=== PATIENT | male | born 1955 | race Caucasian/White ===

== ENCOUNTER 2021-09-13 15:00 | Inpatient (IN) | payer MEDICARE, OTHER, SELFPAY ==
[2021-09-13] VITALS (9 sets, daily range): BP systolic 91–144; BP diastolic 67–92; PULSE 63–80; RESP 12–18; TEMP 36.2–36.6; O2SAT 98–100
--- NOTE | ~2021-09-13 | XR_ITS ---
EXAMINATION: XR chest 2V DATE: 09/13/2021 15:36 INDICATION: Generalized chest pain TECHNIQUE: AP and lateral views of the chest are obtained. COMPARISON: 09/04/2019 FINDINGS: There are airspace opacities of the mid and lower lung zones. Small pleural effusions are p resent. There is no pneumothorax. The heart size is upper limits of normal for technique. Calcified m ediastinal lymph nodes are consistent with old granulomatous disease. There is a questionable fractur e of the proximal left humerus. IMPRESSION: 1. Airspace opacities of the mid and lower lung zones, consistent with atelectasis versus pneumonia. 2. Possible fracture at the proximal left humerus. Correlate with clinical exam and any outside imagi ng and if unavailable, consider dedicated left shoulder radiographs. Reviewed, dictated and finalized at location B. [facility] IMPRESSION: 1. Airspace opacities of the mid and lower lung zones, consistent with atelecta sis versus pneumonia. 2. Possible fracture at the proximal left humerus. Correlate with clinical exam and any outside imaging and if unavailable, consider dedicated left shoulder r adiographs.
--- NOTE | 2021-09-13 15:20 | ECG_ITS ---
Measurements Intervals [place] Rate: 70 P: NC: 0 QRS: -66 QRSD: 153 T: 69 QT: 426 QTc: 462 Interpretive Statements ATRIAL FIBRILLATION VENTRICULAR PREMATURE COMPLEXES LEFT AXIS DEVIATION LEFT BUNDLE BRANCH BLOCK BASELINE ARTIFACT- I, II, III, AVR, AVL, AVF, V1, V4 ABNORMAL ECG Electronically Signed On 09-13-2021 15:24:11 PEDIATRIC PHYSIATRIST by Rosales Loera D.O.
--- NOTE | 2021-09-13 16:10 | PC.NURSE ---
discharge specialist spoke with [facility] regarding hospice status. discharge specialist informed that sister (jeremías) discharged pt out of facility and d/c hospice care.
[2021-09-13 16:41] LABS: Basophils Absolute Auto 0.1 K/mm3 (0.0-0.1); Basophils Percent Auto 0.7 % (0.2-1.2); Eosinophils Percent Auto 0.2 % (0-4.4); Hematocrit 37.7 % (42.0-52.0); Hemoglobin 11.1 g/dL (14.0-18.0); Immature Granulocyte Absolute 0.91 K/mm3 (0.00-0.031); Immature Granulocyte Percent A 7.3 % (0-0.5); Lymphocytes Absolute Auto 0.72 K/mm3 (0.9-3.2); Lymphocytes Percent Auto 5.7 % (18.3-44.2); Mean Corpuscular HGB Conc 29.4 g/dl (32-36); Mean Corpuscular Hemoglobin 26.6 pg (26-34); Mean Corpuscular Volume 90.4 fl (80-100); Mean Platelet Volume 10.1 fl (7.4-10.4); Monocytes Absolute Auto 0.4 K/mm3 (0.1-0.6); Monocytes Percent Auto 3.3 % (2.6-8.5); Neutrophils Absolute Auto 10.4 K/mm3 (1.3-6.7); Neutrophils Percent Auto 82.8 % (45.5-73.1); Nucleated Red Blood Cells Perc 0.2 % (0.0-0.2); Platelet Count Result 371 k/mm3 (150-375); Red Blood Count 4.17 M/mm3 (4.6-6.20); White Blood Count 12.5 K/mm3 (4.5-10.0)
[2021-09-13 16:50] LABS: Anion Gap 8 mmol/L (8-16); Blood Urea Nitrogen 45 mg/dL (9-20); Calcium 8.1 mg/dL (8.4-10.2); Carbon Dioxide 33 mmol/L (22-30); Chloride 99 mmol/L (98-107); Estimated CRCL calculation 103 ml/min; Estimated Glomerular Filt Rate > 60; Glucose 183 mg/dL (65-110); Potassium 3.6 mmol/L (3.4-5.0); Sodium 140 mmol/L (137-145)
[2021-09-13 16:55] LABS: NT Pro B Type Natriuretic Pept 1370 pg/mL (5-100)
[2021-09-13 17:02] LABS: Troponin I 0.035 ng/mL (0.000-0.034)
[2021-09-13 17:22] LABS: Platelet Estimate Adequate (Adequate)
[2021-09-13 17:23] LABS: Hypochromasia 1+ (NORMAL); Ovalocytes 2+ (NORMAL)
[2021-09-13 17:29] LABS: Add Urine Microscopic? NO; Appearance Urine Clear (Clear); Bilirubin Urine Negative (Negative); Blood Urine Negative (Negative); Color Urine Yellow (Yellow); Glucose Urine UA Negative (Negative); Ketones Urine Negative (Negative); Leukocyte Esterase Ur Negative LEU/UL (Negative); Nitrate Urine Negative (Negative); Protein Urine Negative (Negative); Specific Grav Ur 1.017 (1.001-1.035); Urobilinogen Urine Negative mg/dL (<2.0)
--- NOTE | 2021-09-13 18:41 | ED.GENADULT ---
HPI - General Adult General Chief complaint: Shortness of Breath/Dyspnea Stated complaint: Hospice - chest pain Time Seen by Provider: 09/13/21 15:50 Source: patient and EMS Mode of arrival: EMS History of Present Illness HPI narrative: 66-year-old with a history of diabetes, COPD, CAD, paroxysmal atrial fibrillation, was sent from a [facility] for chest pain. However patient denies having any chest pain he states that he has occasional cough. As per his sister who called us few minutes ago states that he wants her out of the fpc and withdraw from a hospice care. Patient states that he was in a concentration time and he feels terrible. He denies any shortness of breath, nausea or vomiting or abdominal pain. Onset (ago): day(s) (1) Associated symptoms: denies other symptoms Related Data Home Medications Medication Instructions Recorded Confirmed acetaminophen See Rx Instructions .ROUTE .COMPLEX 09/13/21 albuterol sulfate INHALATION 09/13/21 aspirin [Aspir-81] 81 mg PO DAILY 09/13/21 benzonatate See Rx Instructions .ROUTE .COMPLEX 09/13/21 09/13/21 bisacodyl [Dulcolax (bisacodyl)] 10 mg RECTAL DAILY PRN 09/13/21 clonazepam 0.5 mg PO TID 09/13/21 furosemide [Lasix] 40 mg PO DAILY 09/13/21 lorazepam PRN 09/13/21 magnesium hydroxide [Milk of 400 mg PO DAILY PRN 09/13/21 Magnesia] metoprolol succinate PO DAILY 09/13/21 morphine concentrate 09/13/21 omeprazole 20 mg PO DAILY 09/13/21 ondansetron PRN 09/13/21 paroxetine HCl mg PO DAILY 09/13/21 prednisone BID 09/13/21 quetiapine 50 TID 09/13/21 sennosides-docusate sodium PO 09/13/21 [Stimulant Laxative Plus] Allergies Allergy/AdvReac Type Severity Reaction Status Date / Time lisinopril Allergy Unknown Verified 09/13/21 15:19 Review of Systems Constitutional: Constitutional: Reports no additional constitutional complaints Eyes: Eyes: Reports no additional eye complaints ENT: Reports system reviewed and no additional complaints, except as documented Cardiovascular: Cardiovascular: Reports as per HPI Respiratory: Respiratory: Reports cough Gastrointestinal: Gastrointestinal: Reports no additional gastrointestinal complaints Musculoskeletal: Musculoskeletal: Reports no additional musculoskeletal complaints Integumentary/Breasts: Skin/Breast: Reports system reviewed and no additional complaints, except as docu Neurologic: Reports system reviewed and no additional complaints, except as documented PMFSH Social History Social History (Updated 09/13/21 @ 18:47 by Damian Sellers MD) Smoking status: Former smoker Living arrangements: fpc Exam Narrative: GENERAL: ill -appearing, well-nourished, and in no acute distress. HEAD: Normocephalic, atraumatic. EYES: PERRLA and EOMI.. NECK: Supple. CHEST: Clear to auscultation. No respiratory distress. HEART: Regular rate and rhythm. No murmur heard. Normal peripheral pulses. ABDOMEN: Soft, nontender, nondistended, normal active bowel sounds. EXTREMITIES: Normal range of motion. has 2 plus edema SKIN: Warm, dry, no rash. NEURO: No focal deficits. Alert and oriented x3. PSYCH: Normal mood and affect. Course Course Emergency Course: As per the nursing staff patient sister called stating that his she does not want him to go back to the fpc, she is the POA wants him to be admitted and she will pick them up tomorrow. And she wants to withdraw from hospice. X-ray of the chest shows old left humerus fracture, I reviewed his old fpc records has a history of left shoulder pain I suspect this must be old Vital Signs Vital signs: Vital Signs Temperature 36.6 C 09/13/21 15:06 Pulse Rate 77 09/13/21 15:06 Respiratory Rate 14 09/13/21 15:06 Blood Pressure 117/77 09/13/21 15:06 Pulse Oximetry 100 09/13/21 15:06 Temperature 36.6 C 09/13/21 15:06 Pulse Rate 68 09/13/21 17:24 Respiratory Rate 12 09/13/21 17:24 Blood Pressure 95/74 L
[2021-09-13] MEDS: SODIUM CHLORIDE 0.9% IV 1,000 ML 75 ML IV CONT (21:28)
[2021-09-14] VITALS (16 sets, daily range): BP systolic 87–132; BP diastolic 55–89; PULSE 45–80; RESP 16–24; TEMP 35.8–37.9; O2SAT 91–100
[2021-09-14] MEDS: LORazepam (*CRX) 1 MG TABLET PO ×3 (04:01→17:46)
--- NOTE | 2021-09-14 04:15 | ADMGEN ---
This patient, Emeterio Koroma, was admitted to [facility] Surg Room 326-01. Patient/family oriented to hospital policies and general routines including ID bracelet, bed and alarms, visiting hours, pain management, procedures, bathroom and other care routines, personal items, smoking policy, room service/diet, and visiting hours. Information on how to activate the Rapid Response Team has been discussed. Patient/Family are encouraged to report perceived risks to care and to ask questions if they do not understand what they are told or what they should do.
[2021-09-14] MEDS: MORPHINE SULFATE (*CRX) 4 MG/ML INJ IV PUSH ×3 (06:02→10:35)
[2021-09-14 06:33] LABS: Basophils Absolute Auto 0.1 K/mm3 (0.0-0.1); Basophils Percent Auto 0.9 % (0.2-1.2); Eosinophils Absolute Auto 0.1 K/mm3 (0-0.3); Hematocrit 38.4 % (42.0-52.0); Hemoglobin 11.2 g/dL (14.0-18.0); Immature Granulocyte Absolute 0.63 K/mm3 (0.00-0.031); Immature Granulocyte Percent A 4.9 % (0-0.5); Lymphocytes Absolute Auto 1.93 K/mm3 (0.9-3.2); Mean Corpuscular HGB Conc 29.2 g/dl (32-36); Mean Corpuscular Hemoglobin 26.2 pg (26-34); Mean Corpuscular Volume 89.9 fl (80-100); Mean Platelet Volume 9.9 fl (7.4-10.4); Monocytes Absolute Auto 0.6 K/mm3 (0.1-0.6); Monocytes Percent Auto 4.7 % (2.6-8.5); Neutrophils Absolute Auto 9.4 K/mm3 (1.3-6.7); Neutrophils Percent Auto 73.5 % (45.5-73.1); Nucleated Red Blood Cells Perc 0.2 % (0.0-0.2); Platelet Count Result 340 k/mm3 (150-375); Red Blood Count 4.27 M/mm3 (4.6-6.20); Red Cell Distribution Width 17.1 % (11.5-14.5); White Blood Count 12.9 K/mm3 (4.5-10.0)
[2021-09-14 06:58] LABS: Anion Gap 3 mmol/L (8-16); Blood Urea Nitrogen 38 mg/dL (9-20); Calcium 7.9 mg/dL (8.4-10.2); Carbon Dioxide 36 mmol/L (22-30); Chloride 101 mmol/L (98-107); Estimated CRCL calculation 148 ml/min; Estimated Glomerular Filt Rate > 60; Glucose 103 mg/dL (65-110); Potassium 3.6 mmol/L (3.4-5.0); Sodium 140 mmol/L (137-145)
--- NOTE | 2021-09-14 07:36 | PM.IMHP ---
H&P: HPI History of Present Illness Date/Time: 09/14/21 07:36 HPI:This is a 66-year-old with a history of diabetes, COPD, CAD, paroxysmal atrial fibrillation,who was sent from a intermediate for evaluation of chest pain. However patient denies having any chest pain he states that he has occasional cough. Please patient carries a diagnosis of end-stage COPD and has been on hospice care. His case is managed by [facility]. The ED physician was contacted by his sister. She would like to transfer him out of the intermediate and withdraw from a hospice care. Patient feels very sick, stating that he has 1 ft in the grave and the 2nd his foot is being approved. He denies any shortness of breath, nausea or vomiting or abdominal pain. At the time of my examination the patient he is very short of breath and is not able to complete sentences. He is awake alert oriented x4. Nurses have reported some suicidal ideation. However I returned to check on the patient on 2 occasions. He has been making sarcastic comment about his future , however he has not stated to me that he may wish to imminently. In the emergency department the patient is stable and afebrile with the following vital signs. The blood pressure of 117/77, a pulse rate of 77, respiratory rate 14, pulse ox 100% on, temperature 36.6? I night. Basic labs were drawn. He CBC shows a WBC of 12.5, hemoglobin 11.1, hematocrit 37.7 and a packed red count of 371. His chemistry shows a sodium of 140, potassium 3.6, chloride 99, bicarbonate 33, BUN 45 creatinine 0.6 and blood sugar 183. A chest x-ray was performed. ITS Impressions Chest X-Ray 09/13/21 15:37 IMPRESSION: 1. Airspace opacities of the mid and lower lung zones, consistent with atelectasis versus pneumonia. 2. Possible fracture at the proximal left humerus. Correlate with clinical exam and any outside imaging and if unavailable, consider dedicated left shoulder radiographs. An EKG was performed; EKG Interpretation: normal rate (70), atrial fibrillation, non-specific ST changes, no ST changes, normal QT and left axis Patient was started on diuresis with Lasix 40 mg p.o. daily, nebulization with albuterol and I prior opium. He was started on antibiotic with ceftriaxone and Zithromax. Patient is admitted with the status of inpatient at least 2 midnights. Chief Complaint: Shortness of breath Review of Systems Review of Systems: All systems reviewed & are unremarkable except as noted in HPI and below Constitutional: Constitutional: Reports as per HPI, Reports fatigue, Reports lethargy and Reports weakness Eyes: Eyes: Reports as per HPI, Reports no additional eye complaints, Denies blurry vision and Denies photophobia ENT: Reports system reviewed and no additional complaints, except as documented, Reports as per HPI, Reports Normal hearing present, Denies dysphagia, Denies epistaxis and Denies tinnitus Cardiovascular: Cardiovascular: Reports as per HPI, Reports no additional cardiovascular complaints, Denies chest pain, Denies diaphoresis, Reports pedal edema, Reports leg edema, Denies lightheadedness and Denies palpitations Respiratory: Respiratory: Reports as per HPI, Reports chest congestion, Reports cough, Denies hemoptysis, Reports dyspnea, Reports dyspnea on exertion and Reports wheezing Gastrointestinal: Gastrointestinal: Reports as per HPI, Denies abdominal pain, Denies constipation, Denies diarrhea, Denies nausea and Denies vomiting Genitourinary: Genitourinary: Reports no additional male genitourinary complaints and Reports as per HPI Musculoskeletal: Musculoskeletal: Reports no additional musculoskeletal complaints and Reports as per HPI Integumentary/Breasts: Skin/Breast: Reports as per HPI Comments: Lower extremities chronic skin changes Neurologic: Reports system reviewed and no additional complaints, except as documented and Reports as per HPI Psychiatric: Psychiatric: Reports no additional psychiatric com
[2021-09-14] MEDS: MORPHINE SULFATE (*CRX) 30 MG TABCR PO ×2 (08:37→17:46)
[2021-09-14] MEDS: clonazePAM (*CRX) 0.5 MG TABLET PO ×2 (08:37→17:46)
[2021-09-14] MEDS: QUEtiapine FUMARATE 25 MG TABLET 50 MG PO ×2 (08:38→17:46)
[2021-09-14] MEDS: BENZONATATE 100 MG CAPSULE PO (08:38)
[2021-09-14] MEDS: ASPIRIN 81 MG ENTERIC TABLET PO (08:38)
[2021-09-14] MEDS: SENNA/DOCUSATE SODIUM TABLET 1 TAB PO (08:39)
[2021-09-14] MEDS: FUROSEMIDE 40 MG TABLET PO (08:39)
[2021-09-14] MEDS: predniSONE 20 MG TABLET PO ×2 (08:39→17:46)
[2021-09-14] MEDS: METOPROLOL SUCCINATE EXT REL 50 MG TABCR PO (08:40)
[2021-09-14] MEDS: IPRATROPIUM BR 0.02% INH SOLN 0.5 MG/2.5 ML VIAL INHALATION ×3 (08:40→21:17)
[2021-09-14] MEDS: PARoxetine 10 MG TABLET PO (08:41)
[2021-09-14] MEDS: PANTOPRAZOLE 40 MG TABLET PO (08:41)
[2021-09-14] MEDS: ALBUTEROL SULFATE NEB 2.5 MG/0.5 ML INH 5 MG INHALATION ×3 (08:50→21:17)
[2021-09-14 09:26] LABS: Ovalocytes 1+ (NORMAL); Platelet Estimate Adequate (Adequate); Poikilocytosis 1+ (NORMAL); Schistocytes 1+ (NORMAL)
--- NOTE | 2021-09-14 11:42 | PC.NURSE ---
Housekeeping came to me and told me that the pt stated that he wanted a pen so he could stab himself in the throat and he wanted to bash his head on the wall until he dies . I went in and checked on the pt who had his nasal cannula up near his eyebrows. I called his name to awaken him and readjusted his cannula. He pulled his fist back, looked at me fiercely and stated i better not do that again or he'll beat my a. I told him I am sorry if I startled him, but he needs to remember we are here to help him. I asked if he remembers saying those things, and he said yes, I want to . I removed all things from his immediate reach, informed my auditor in charge and hospital housekeeper, and called the doctor and informed of the previous conversation. She said she would come to see the patient. MD later stated she saw him and does not feel that he has the capability to act on his thoughts and thinks that he is only being sarcastic. She stated that she will be around in a few hours to check on him again. I informed house sup who said that she will get in touch with care coordination to figure out a solution to his full care/hospice/SI. Informed auditor in charge who said to document and keep her informed. Will continue to monitor.
[2021-09-14 11:46] LABS: Glucose Point of Care 116 mg/dl (65-105)
--- NOTE | 2021-09-14 12:29 | PC.NURSE ---
At time of medication pass this morning, was present in room with me. Pt had 4mg IVP of morphine available for pain. Pt usually takes morphine at facility for SOB. I asked MD if I could give for SOB. She said yes, absolutely. Administered against the pain one twice for pt extreme SOB, not wanting to wait for order approval from pharmacy. Putting in new order now.
[2021-09-14 20:28] LABS: EDCOVIDSCREEN Negative (Negative)
[2021-09-14] MEDS: SODIUM CHLORIDE 0.9% IV 1,000 ML 50 ML IV CONT (22:25)
[2021-09-14] MEDS: ACETAMINOPHEN 325 MG TABLET 650 MG PO (22:44)
[2021-09-15] VITALS (10 sets, daily range): BP systolic 93–126; BP diastolic 57–83; PULSE 58–84; RESP 16–24; TEMP 36.3–37.7; O2SAT 94–100
[2021-09-15] MEDS: LORazepam (*CRX) 1 MG TABLET PO (00:09)
[2021-09-15] MEDS: ALBUTEROL SULFATE NEB 2.5 MG/0.5 ML INH 5 MG INHALATION ×2 (01:50→08:18)
[2021-09-15] MEDS: IPRATROPIUM BR 0.02% INH SOLN 0.5 MG/2.5 ML VIAL INHALATION ×2 (01:50→08:18)
[2021-09-15] MEDS: MORPHINE SULFATE (*CRX) 4 MG/ML INJ IV PUSH ×2 (05:38→11:36)
[2021-09-15] MEDS: predniSONE 20 MG TABLET PO (08:12)
[2021-09-15] MEDS: clonazePAM (*CRX) 0.5 MG TABLET PO (08:12)
[2021-09-15] MEDS: MORPHINE SULFATE (*CRX) 30 MG TABCR PO (08:12)
[2021-09-15] MEDS: PANTOPRAZOLE 40 MG TABLET PO (08:13)
[2021-09-15] MEDS: METOPROLOL SUCCINATE EXT REL 50 MG TABCR PO (08:13)
[2021-09-15] MEDS: QUEtiapine FUMARATE 25 MG TABLET 50 MG PO (08:13)
[2021-09-15] MEDS: PARoxetine 10 MG TABLET PO (08:13)
[2021-09-15] MEDS: ENOXAPARIN 30 MG/0.3 ML SYRINGE SUB-Q (08:20)
[2021-09-15] MEDS: FUROSEMIDE 40 MG TABLET PO (08:21)
[2021-09-15] MEDS: SENNA/DOCUSATE SODIUM TABLET 1 TAB PO (08:21)
[2021-09-15] MEDS: ASPIRIN 81 MG ENTERIC TABLET PO (08:21)
[2021-09-15 08:47] LABS: Hemoglobin 10.7 g/dL (14.0-18.0); Mean Corpuscular HGB Conc 29.7 g/dl (32-36); Mean Corpuscular Volume 90.7 fl (80-100); Mean Platelet Volume 9.7 fl (7.4-10.4); Platelet Count Result 368 k/mm3 (150-375); Red Blood Count 3.97 M/mm3 (4.6-6.20); Red Cell Distribution Width 17.1 % (11.5-14.5); White Blood Count 10.5 K/mm3 (4.5-10.0)
[2021-09-15 09:08] LABS: Anion Gap 2 mmol/L (8-16); Blood Urea Nitrogen 29 mg/dL (9-20); Calcium 8.1 mg/dL (8.4-10.2); Carbon Dioxide 39 mmol/L (22-30); Chloride 99 mmol/L (98-107); Estimated CRCL calculation 103 ml/min; Estimated Glomerular Filt Rate > 60; Glucose 95 mg/dL (65-110); Potassium 3.8 mmol/L (3.4-5.0); Sodium 140 mmol/L (137-145)
[2021-09-15 09:15] LABS: NT Pro B Type Natriuretic Pept 708 pg/mL (5-100)
--- NOTE | 2021-09-15 14:27 | PM.DS ---
DS: Admitting Diagnosis Discharge Date 09/15/2021 Admitting Diagnosis Acute on chronic respiratory failure. Acute COPD exacerbation. Community-acquired pneumonia. DS: Discharge Diagnosis Discharge Diagnosis (1) Acute and chronic respiratory failure: Code(s): J96.20 - Acute and chronic respiratory failure, unspecified whether with hypoxia or hypercapnia Status: Acute (2) Community acquired pneumonia: Qualifiers: Laterality: unspecified laterality Qualified Code(s): J18.9 - Pneumonia, unspecified organism Code(s): J18.9 - Pneumonia, unspecified organism Status: Acute Assessment and Plan: Patient referred for chest pain. On arrival he is symptomatic with shortness of breasts wheezing or crackle and rhonchi. He denied any chest pain. Troponin was mildly elevated and EKG was unremarkable. Chest x-ray shows suggest pneumonia. Will treat with a combination of ceftriaxone and Zithromax. Blood cultures have been sent and pending at the time of this dictation. We will send workup for atypical pneumonia as well. Currently patient is saturating 94 99% on 3 L oxygen per nasal cannula. It is unknown if this is his baseline. Despite initial management, patient is a remains very symptomatic. Patient was already schedule for hospice with [place]. They were consulted and took over his management today. (3) End stage chronic obstructive pulmonary disease: Code(s): J44.9 - Chronic obstructive pulmonary disease, unspecified Status: Acute Assessment and Plan: Patient presented with acute shortness of breath. On physical exam there is bilateral wheezing, rhonchi and crackles. Chest x-ray suggestive of pneumonia. Given his past history of advanced COPD in previous heavy smoker, will continue steroid therapy, start albuterol nebulization. Patient has been started on antibiotic to cover for community-acquired pneumonia. At this juncture this is very reasonable and will pursue to same therapy. Currently patient transferred under hospice care. (4) Heart failure: Code(s): I50.9 - Heart failure, unspecified Status: Acute Assessment and Plan: Patient carries a previous diagnosis of heart failure. We do not have additional records regarding this. Clinically he is able to tolerate laying flat. However he has significant lower extremity edema is and bilateral chronic skin changes. He was previously on Lasix 40 mg p.o. daily at home. We will increase the Lasix to 4 minutes =mg p.o. twice daily and watch his diuretic response. We will monitor daily in and around, daily weights and serial chemistry. Patient currently transferred to hospice care. (5) Transition from hospice to acute care: Status: Acute Assessment and Plan: Patient was previously under hospice care, currently referred for acute symptoms of chest pain. On initial investigation, there is low suspicion for an acute coronary syndrome and given his advanced stage of COPD will not launch an ischemic workup. However patient is in severe severe respiratory distress with diffuse wheezing we will treat him for acute heart failure exacerbation and COPD exacerbation. Chest x-ray suggestive of pneumonia, most recently patient was living in a [place] [facility], a congregated space, he WBC is mildly elevated at 12.9. This may be ascribed to his steroid regimen. We will start him on antibiotic to cover for community-acquired pneumonia including ceftriaxone and azithromycin. Patient has been transferred under hospice care. (6) Diabetes: Code(s): E11.9 - Type 2 diabetes mellitus without complications Status: Acute Assessment and Plan: On review of his own medication patient has not been recently on antidiabetic medication. His blood sugar is I have been in the 1/3-183 range. Single finger stick was 116. Will continue to monitor the patient. Given his advanced degree of disease, diet has been relaxed to
[2021-09-18 09:43] LABS: Legionella pneumophila Ag Ur Not Detected (Not Detected)
== END 2021-09-15 14:35 | disposition hospice, inpatient (51) | DRG 193 ==
LOC: ANHED 18:54 → ANH3MEDSUR 19:16
PROVIDERS: Admitting Provider Internal Medicine; Emergency Provider Family Medicine; PCP Family Medicine; Visit Provider Internal Medicine
DX: J18.9 Pneumonia, unspecified organism (principal); J96.20 Acute and chronic respiratory failure, unspecified whether with hypoxia or hypercapnia; J44.1 Chronic obstructive pulmonary disease with (acute) exacerbation; J44.0 Chronic obstructive pulmonary disease with (acute) lower respiratory infection; Z20.822 Contact with and (suspected) exposure to COVID-19; I50.9 Heart failure, unspecified; I25.10 Atherosclerotic heart disease of native coronary artery without angina pectoris; I48.0 Paroxysmal atrial fibrillation; Z87.891 Personal history of nicotine dependence
CPT/HCPCS: 36415; 71046; 80048; 81003; 82948; 83880; 84484; 85025; 85027; 87040; 87426; 87449; 93005; 94640; 96365; 96367; 96375; 96376; 99285; A9270; C9803; G0378; J0456; J0696; J1650; J2270; J7030; J7512

== ENCOUNTER 2021-09-15 14:10 | HOS | payer OTHER, SELFPAY ==
[2021-09-15 15:22] VITALS: O2SAT 97
[2021-09-15] MEDS: LORazepam INJ (*CRX) 2 MG/ML VIAL IV PUSH ×2 (15:55→17:55)
[2021-09-15] MEDS: MORPHINE SULFATE INJ (*CRX) 50 MG in SODIUM CHLORIDE 0.9% IV 95 ML 6 MG IV CONT (16:20)
[2021-09-15 17:00] VITALS: BMI 21.2
[2021-09-15 20:00] VITALS: BP 132/98; PULSE 55; RESP 18; TEMP 36.2; O2SAT 91
--- NOTE | 2021-09-15 20:23 | PCRCNOTE ---
pt on hospice and refusing nebulizers stating they do not allow him to breathe better.
[2021-09-15 20:25] VITALS: O2SAT 98
[2021-09-15] MEDS: QUEtiapine FUMARATE 25 MG TABLET 50 MG PO (23:58)
[2021-09-16] MEDS: QUEtiapine FUMARATE 25 MG TABLET 50 MG PO ×3 (06:36→21:17)
--- NOTE | 2021-09-16 07:28 | PM.IMHP ---
H&P: HPI History of Present Illness Date/Time: 09/16/21 07:28 This is a 66-year-old with a history of diabetes, COPD, CAD, paroxysmal atrial fibrillation,who was sent from a [facility] for evaluation of chest pain. However patient denies having any chest pain he states that he has occasional cough. Please patient carries a diagnosis of end-stage COPD and has been on hospice care. His case is managed by [facility]. The ED physician was contacted by his sister. She would like to transfer him out of the [facility] and withdraw from a hospice care. Patient feels very sick, stating that he has 1 ft in the grave and the 2nd his foot is being approved. He denies any shortness of breath, nausea or vomiting or abdominal pain. At the time of my examination the patient he is very short of breath and is not able to complete sentences. He is awake alert oriented x4. Nurses have reported some suicidal ideation. However I returned to check on the patient on 2 occasions. In the emergency department the patient is stable and afebrile with the following vital signs. The blood pressure of 117/77, a pulse rate of 77, respiratory rate 14, pulse ox 100% on, temperature 36.6? I night. Basic labs were drawn. He CBC shows a WBC of 12.5, hemoglobin 11.1, hematocrit 37.7 and a packed red count of 371. His chemistry shows a sodium of 140, potassium 3.6, chloride 99, bicarbonate 33, BUN 45 creatinine 0.6 and blood sugar 183. Her [facility] hospice service was consulted. Patient was transitioned to hospice care per his per is previous wishes. His sister and POA signed the consent forms. s: Patient is at is examined at the bedside today. He is oriented to self only. He requested water. He feels that he is doing worse. It Chief Complaint: Worsening shortness of breath. Review of Systems Review of Systems: All systems reviewed & are unremarkable except as noted in HPI and below Constitutional: Constitutional: Reports as per HPI, Reports fatigue, Reports lethargy and Reports weakness Eyes: Eyes: Reports as per HPI, Reports no additional eye complaints and Denies blurry vision ENT: Reports system reviewed and no additional complaints, except as documented, Reports as per HPI, Denies dysphagia, Denies epistaxis and Denies tinnitus Cardiovascular: Cardiovascular: Reports as per HPI, Denies chest pain, Reports pedal edema, Reports leg edema, Denies palpitations, Reports dyspnea and Reports dyspnea on exertion Respiratory: Respiratory: Reports as per HPI, Reports chest congestion, Reports dyspnea, Reports dyspnea on exertion and Reports wheezing Gastrointestinal: Gastrointestinal: Reports as per HPI, Denies dysphagia, Denies diarrhea, Denies nausea and Denies vomiting Genitourinary: Genitourinary: Reports as per HPI Musculoskeletal: Musculoskeletal: Reports no additional musculoskeletal complaints, Reports as per HPI and Reports numbness Integumentary/Breasts: Skin/Breast: Reports system reviewed and no additional complaints, except as docu and Reports as per HPI Comments: Bilateral lower extremity chronic skin changes. Neurologic: Reports system reviewed and no additional complaints, except as documented, Reports as per HPI, Reports confusion, Reports numbness and Reports weakness Psychiatric: Psychiatric: Reports as per HPI, Reports anxiety, Reports confusion and Reports depression Endocrine: Endocrine: Reports no additional endocrine complaints, Reports fatigue, Denies polyuria and Denies palpitations Hematologic/Lymphatic: Hematologic/Lymphatic: Reports no additional hematologic/lymphatic complaints Allergic/Immunologic: Allergic/Immunologic: Reports wheezing [facility] Social History Social History Smoking packs per day: 1.5 Smoking cigarettes per day: 30.0 Years smoked: 55 Smoking pack-years: 82.50 Smoking status: Current every day smoker Tobacco type: cigarettes Second hand tobacco smoke
[2021-09-16 08:00] VITALS: PULSE 55; RESP 18; O2SAT 96
[2021-09-16 08:28] VITALS: O2SAT 96
[2021-09-16] MEDS: MORPHINE SULFATE INJ (*CRX) 50 MG in SODIUM CHLORIDE 0.9% IV 95 ML 6 MG IV CONT (08:40)
[2021-09-16] MEDS: BENZONATATE 100 MG CAPSULE PO (09:36)
[2021-09-16] MEDS: FUROSEMIDE 40 MG TABLET PO (09:36)
[2021-09-16] MEDS: SENNA/DOCUSATE SODIUM TABLET 1 TAB PO (09:36)
[2021-09-16] MEDS: PARoxetine 10 MG TABLET PO (09:36)
--- NOTE | 2021-09-16 09:45 | PC.NURSE ---
[facility] called, IV azithromycin non-compatible with IV morphine, clarifying if pt still request IV abt. Awaiting call back.
--- NOTE | 2021-09-16 09:46 | PC.NURSE ---
Spoke with MD Bullock to clarify if pt still request IV abt, informed this nurse to clarify with [facility].
--- NOTE | 2021-09-16 10:44 | PC.NURSE ---
Attempted to insert whyte pt refused at this time.
[2021-09-16] MEDS: LORazepam INJ (*CRX) 2 MG/ML VIAL IV PUSH ×2 (11:15→17:03)
[2021-09-16] MEDS: AZITHROMYCIN 250 MG TABLET PO (13:01)
[2021-09-16 14:33] VITALS: BP 92/72; PULSE 53; RESP 14; TEMP 37.8; O2SAT 90
[2021-09-16 20:00] VITALS: BP 92/61; PULSE 83; RESP 18; TEMP 36.8; O2SAT 84
[2021-09-16] MEDS: LORazepam INJ (*CRX) 2 MG/ML VIAL 1 MG IV PUSH (20:22)
[2021-09-16] MEDS: IPRATROPIUM BR 0.02% INH SOLN 0.5 MG/2.5 ML VIAL INHALATION (20:45)
[2021-09-16] MEDS: ALBUTEROL SULFATE NEB 2.5 MG/0.5 ML INH 5 MG INHALATION (20:46)
[2021-09-16] MEDS: MORPHINE SULFATE INJ (*CRX) 50 MG in SODIUM CHLORIDE 0.9% IV 95 ML 8 MG IV CONT (21:09)
[2021-09-16 21:17] VITALS: O2SAT 94
[2021-09-17] MEDS: LORazepam INJ (*CRX) 2 MG/ML VIAL IV PUSH ×5 (00:14→23:32)
[2021-09-17] MEDS: IPRATROPIUM BR 0.02% INH SOLN 0.5 MG/2.5 ML VIAL INHALATION ×3 (01:56→14:19)
[2021-09-17] MEDS: ALBUTEROL SULFATE NEB 2.5 MG/0.5 ML INH 5 MG INHALATION ×3 (01:56→14:19)
[2021-09-17] MEDS: QUEtiapine FUMARATE 25 MG TABLET 50 MG PO (06:14)
[2021-09-17 06:32] LABS: Basophils Percent Auto 0.3 % (0.2-1.2); Eosinophils Percent Auto 0.2 % (0-4.4); Hemoglobin 11.7 g/dL (14.0-18.0); Immature Granulocyte Absolute 0.15 K/mm3 (0.00-0.031); Immature Granulocyte Percent A 1.1 % (0-0.5); Lymphocytes Absolute Auto 1.35 K/mm3 (0.9-3.2); Lymphocytes Percent Auto 9.5 % (18.3-44.2); Mean Corpuscular Volume 90.1 fl (80-100); Mean Platelet Volume 9.5 fl (7.4-10.4); Monocytes Absolute Auto 0.8 K/mm3 (0.1-0.6); Monocytes Percent Auto 5.7 % (2.6-8.5); Neutrophils Absolute Auto 11.8 K/mm3 (1.3-6.7); Neutrophils Percent Auto 83.2 % (45.5-73.1); Platelet Count Result 334 k/mm3 (150-375); Red Blood Count 4.33 M/mm3 (4.6-6.20); Red Cell Distribution Width 17.4 % (11.5-14.5); White Blood Count 14.2 K/mm3 (4.5-10.0)
[2021-09-17 06:45] LABS: Anion Gap 4 mmol/L (8-16); Blood Urea Nitrogen 33 mg/dL (9-20); Calcium 8.3 mg/dL (8.4-10.2); Carbon Dioxide 39 mmol/L (22-30); Chloride 96 mmol/L (98-107); Estimated CRCL calculation 90 ml/min; Estimated Glomerular Filt Rate > 60; Glucose 80 mg/dL (65-110); Potassium 3.9 mmol/L (3.4-5.0); Sodium 139 mmol/L (137-145)
[2021-09-17 07:37] VITALS: PULSE 66; RESP 16
[2021-09-17 07:44] VITALS: RESP 16
[2021-09-17 08:30] VITALS: BP 86/57; PULSE 61; RESP 14; TEMP 36.4; O2SAT 87
[2021-09-17] MEDS: MORPHINE SULFATE INJ (*CRX) 50 MG in SODIUM CHLORIDE 0.9% IV 95 ML 8 MG IV CONT ×2 (11:20→23:21)
[2021-09-17 14:21] VITALS: PULSE 59; RESP 16
[2021-09-17 14:30] VITALS: PULSE 79; RESP 16
--- NOTE | 2021-09-17 15:50 | PM.IMPN ---
Progress Note: A&P Assessment and Plan (1) Hospice care patient: Code(s): Z51.5 - Encounter for palliative care Status: Acute Assessment and Plan: Comfortable on morphine 4mg/hr Continue palliative regimen as ordered (2) End stage chronic obstructive pulmonary disease: Code(s): J44.9 - Chronic obstructive pulmonary disease, unspecified Status: Acute Assessment and Plan: Palliative care to continue (3) Heart failure: Code(s): I50.9 - Heart failure, unspecified Status: Acute Assessment and Plan: D/c PO meds (4) Diabetes: Code(s): E11.9 - Type 2 diabetes mellitus without complications Status: Acute Assessment and Plan: w/o sx's (5) Atrial fibrillation: Code(s): I48.91 - Unspecified atrial fibrillation Status: Acute Assessment and Plan: No sx's (6) CAD (coronary artery disease): Code(s): I25.10 - Atherosclerotic heart disease of [place] coronary artery without angina pectoris Status: Acute Assessment and Plan: Currently w/o angina (7) Community acquired pneumonia: Qualifiers: Laterality: unspecified laterality Qualified Code(s): J18.9 - Pneumonia, unspecified organism Code(s): J18.9 - Pneumonia, unspecified organism Status: Acute Assessment and Plan: discontinue antibiotics Subjective Date/time seen: 09/17/21 15:50 Review of Systems Review of Systems: ROS unobtainable: Yes unobtainable due to medical condition Exam Narrative: Chronic ill-appearing gentleman resting comfortably in hospital bed in semi recumbent position mucosa moist neck no JVD chest with coarse crackles throughout, effort normal heart irregular no audible murmur abdomen hypoactive bowel sounds no mass extremities no edema musculoskeletal tone symmetric neurologic cranial nerves symmetric to inspection Objective Data Vital Signs Vital Signs: Vital Signs - 24 hr 09/16/21 20:00 09/16/21 21:17 09/17/21 07:37 Temperature 98.3 F Pulse Rate 83 66 Respiratory Rate 18 16 Blood Pressure 92/61 L Pulse Oximetry 84 L 94 09/17/21 07:44 09/17/21 08:30 09/17/21 14:21 Temperature 97.6 F Pulse Rate 61 59 L Respiratory Rate 16 14 16 Blood Pressure 86/57 L Pulse Oximetry 87 L 09/17/21 14:30 Temperature Pulse Rate 79 Respiratory Rate 16 Blood Pressure Pulse Oximetry Intake/Output Intake/Output: Intake & Output 09/14/21 09/15/21 09/16/21 09/17/21 23:59 23:59 23:59 23:59 Intake Total 814 150 Output Total 200 Balance 814 -50 Meds/Results Medications: Active Medications Generic Name Dose Route Start Last Admin Trade Name Freq PRN Reason Stop Dose Admin Acetaminophen 650 mg 09/15/21 15:24 Acetaminophen 325 Mg Tablet PO Q4H PRN Fever OR CONNOLLY Albuterol 5 mg 09/15/21 20:00 09/17/21 14:19 Albuterol Sulfate Neb 2.5 Mg/0.5 Ml Inh INHALATION 5 mg Q6HRT DORIAN Administration Azithromycin 250 mg 09/16/21 09:00 09/17/21 08:35 Azithromycin 250 Mg Tablet PO 09/21/21 09:01 Not Given DAILY DORIAN Benzonatate 100 mg 09/15/21 15:25 09/16/21 09:36 Benzonatate 100 Mg Capsule PO 100 mg TID PRN Administration Cough Bisacodyl 10 mg 09/15/21 15:26 Bisacodyl 10 Mg Suppository RECTAL QAM PRN Constipation Furosemide 40 mg 09/16/21 18:15 09/17/21 15:22 Furosemide 40 Mg Tablet PO Not Given BID DORIAN Morphine Sulfate 50 mg/ Sodium 100 mls @ 8 mls/hr 09/15/21 16:00 09/17/21 11:20 Chloride IV CONT 4 mg/hr .[id number] DORIAN 8 mls/hr Administration 4 MG/HR Ceftriaxone Sodium/Dextrose 1 gm in 50 mls @ 100 mls/hr 09/16/21 09:00 09/17/21 09:05 Rocephin 1 Gm/D5w 50 Ml IVPB Infused DAILY DORIAN Infusion Acetaminophen 1,000 mg in 100 mls @ 400 mls/hr 09/16/21 18:14 Ofirmev 1,000 Mg Ivpb IVPB 09/17/21 18:13 Q6H PRN Pain Rated 4-6 Ipratropium [place] 0.5
[2021-09-17] MEDS: PROCHLORPERAZINE EDISYLATE 10 MG/2 ML VIAL IV PUSH ×2 (17:03→23:32)
[2021-09-17 20:00] VITALS: BP 97/69; PULSE 95; RESP 12; TEMP 36.6; O2SAT 90
[2021-09-18] MEDS: LORazepam INJ (*CRX) 2 MG/ML VIAL IV PUSH ×3 (06:12→17:01)
[2021-09-18] MEDS: PROCHLORPERAZINE EDISYLATE 10 MG/2 ML VIAL IV PUSH ×3 (06:12→17:01)
[2021-09-18 08:00] VITALS: BP 116/64; PULSE 63; RESP 14; TEMP 36.4; O2SAT 92
[2021-09-18] MEDS: MORPHINE SULFATE INJ (*CRX) 50 MG in SODIUM CHLORIDE 0.9% IV 95 ML 8 MG IV CONT (11:07)
--- NOTE | 2021-09-18 11:20 | PM.IMPN ---
Progress Note: A&P Assessment and Plan (1) Hospice care patient: Code(s): Z51.5 - Encounter for palliative care Status: Acute Assessment and Plan: Comfortable on morphine 4mg/hr Continue palliative regimen as ordered (2) End stage chronic obstructive pulmonary disease: Code(s): J44.9 - Chronic obstructive pulmonary disease, unspecified Status: Acute Assessment and Plan: Palliative care to continue (3) Heart failure: Code(s): I50.9 - Heart failure, unspecified Status: Acute Assessment and Plan: D/c PO meds (4) Diabetes: Code(s): E11.9 - Type 2 diabetes mellitus without complications Status: Acute Assessment and Plan: w/o sx's (5) Atrial fibrillation: Code(s): I48.91 - Unspecified atrial fibrillation Status: Acute Assessment and Plan: No sx's (6) CAD (coronary artery disease): Code(s): I25.10 - Atherosclerotic heart disease of jena coronary artery without angina pectoris Status: Acute Assessment and Plan: Currently w/o angina (7) Community acquired pneumonia: Qualifiers: Laterality: unspecified laterality Qualified Code(s): J18.9 - Pneumonia, unspecified organism Code(s): J18.9 - Pneumonia, unspecified organism Status: Acute Assessment and Plan: discontinue antibiotics Subjective Date/time seen: 09/18/21 11:20 Interval history: 09/18 visit: Resting comfortably. Review of Systems Review of Systems: ROS unobtainable: Yes unobtainable due to medical condition Exam Narrative: Chronic ill-appearing gentleman resting comfortably in hospital bed in semi recumbent position mucosa moist neck no JVD chest with coarse crackles throughout, effort normal heart irregular no audible murmur abdomen hypoactive bowel sounds no mass extremities no edema musculoskeletal tone symmetric neurologic cranial nerves symmetric to inspection Objective Data Vital Signs Vital Signs: Vital Signs - 24 hr 09/17/21 14:21 09/17/21 14:30 09/17/21 20:00 Temperature 97.8 F Pulse Rate 59 L 79 95 Respiratory Rate 16 16 12 Blood Pressure 97/69 L Pulse Oximetry 90 09/18/21 08:00 Temperature 97.6 F Pulse Rate 63 Respiratory Rate 14 Blood Pressure 116/64 Pulse Oximetry 92 Intake/Output Intake/Output: Intake & Output 11/1109/16/21 09/17/21 09/18/21 23:59 23:59 23:59 23:59 Intake Total 814 250 100 Output Total 200 300 Balance 814 50 -200 Meds/Results Medications: Active Medications Generic Name Dose Route Start Last Admin Trade Name Freq PRN Reason Stop Dose Admin Bisacodyl 10 mg 09/15/21 15:26 Bisacodyl 10 Mg Suppository RECTAL QAM PRN Constipation Morphine Sulfate 50 mg/ Sodium 100 mls @ 8 mls/hr 09/15/21 16:00 09/18/21 11:07 Chloride IV CONT 4 mg/hr .[id number] DORIAN 8 mls/hr Administration 4 MG/HR Lorazepam 2 mg 09/16/21 12:10 09/18/21 11:05 Lorazepam Inj (*Crx) 2 Mg/Ml Vial IV PUSH 2 mg Q6HR DORIAN Administration Lorazepam 1 mg 09/16/21 12:10 09/16/21 20:22 Lorazepam Inj (*Crx) 2 Mg/Ml Vial IV PUSH 09/23/21 12:09 1 mg Q1H PRN Administration Anxiety Prochlorperazine Edisylate 10 mg 09/17/21 18:00 09/18/21 11:05 Prochlorperazine Edisylate 10 Mg/2 Ml Vial IV PUSH 10 mg Q6HR DORIAN Administration
[2021-09-18 20:00] VITALS: BP 116/78; PULSE 89; RESP 12; TEMP 36.7; O2SAT 92
[2021-09-19] MEDS: PROCHLORPERAZINE EDISYLATE 10 MG/2 ML VIAL IV PUSH (00:03)
[2021-09-19] MEDS: MORPHINE SULFATE INJ (*CRX) 50 MG in SODIUM CHLORIDE 0.9% IV 95 ML 8 MG IV CONT (00:29)
--- NOTE | 2021-09-19 00:30 | PC.NURSE ---
Tarik RENE notified of failed IV attempts made by multiple nurses. New orders received until IV access is obtained.
[2021-09-19] MEDS: MORPHINE SULFATE ORAL CONC SOL (*CRX) 10 MG/0.5 ML SYRINGE 12 MG PO (00:56)
[2021-09-19] MEDS: LORazepam (*CRX) 2 MG/ML 30 ML ORAL CONCENTRATE 1 MG SUBLINGUAL (01:09)
[2021-09-19] MEDS: MORPHINE SULFATE INJ (*CRX) 10 MG/ML AMP 16 MG SUB-Q (02:10)
--- NOTE | 2021-09-19 03:30 | PC.NURSE ---
Tarik RENE notified of pt gasping for air, respirations are 36 per min, new orders to increase morphine.
[2021-09-19] MEDS: MORPHINE SULFATE INJ (*CRX) 10 MG/ML AMP 4 MG SUB-Q (03:38)
--- NOTE | 2021-09-19 05:55 | PC.NURSE ---
Pt found with no respirations, no apical pulse present.
--- NOTE | 2021-09-19 06:32 | PC.NURSE ---
0615 Tarik RENE notified of findings, [facility] called with no answer, voicemail left to return Nurse's call. 0640 [facility] Care Nurse Licha notified. Licha states she will continue to try to reach the sister Laurel.
--- NOTE | 2021-09-19 13:04 | P.DN_ITS ---
Discharge Summary Date and Time Date of : 09/19/21 Time of : 05:55 Provider Pronounced By: Yanci Post RNoccupational health physiotherapist Probable Cause of Probable Cause of : ACUTE ON CHRONIC RESPIRATORY FAILURE WITH HYPOXIA AND HYPERCAPNEA DUE TO PNEUMONIA SUPERIMPOSED ON COPD, CHF, AND CAD Summary Hospital Course: ADMITTED TO INPATIENT HOSPICE SERVICE DUE TO UNCONTROLLED DYSPNEA. MEDICATIONS WERE TITRATED TO COMFORT. MR. HARDING PEACEFULLY. Additional Data Confirmation of as documented by pronouncing clinician: Pupillary Reflex, Palpable Pulses, Response to Stimuli, Heart Tones and Breath Sounds Name of Provider Notified: Dr. Ryley Montanez Time Provider Notified: 06:15 Provider Requests Autopsy: No Rn Wound Notified: Yes Date [facility] Notified of : 09/19/21 Time [facility] Notified of : 06:22
--- NOTE | 2021-09-19 14:48 | PC.NURSE ---
MTS called to say that they are doing paperwork with family now and will be coming this evening to supervisor picking crew the body.
== END 2021-09-19 05:55 | disposition expired | DRG 951 ==
PROVIDERS: Admitting Provider Internal Medicine; PCP Family Medicine; Visit Provider Internal Medicine
DX: Z51.5 Encounter for palliative care (principal); J96.02 Acute respiratory failure with hypercapnia; J96.01 Acute respiratory failure with hypoxia; J18.9 Pneumonia, unspecified organism; J44.0 Chronic obstructive pulmonary disease with (acute) lower respiratory infection; I50.9 Heart failure, unspecified; I25.10 Atherosclerotic heart disease of native coronary artery without angina pectoris; I48.91 Unspecified atrial fibrillation; E11.9 Type 2 diabetes mellitus without complications; F17.210 Nicotine dependence, cigarettes, uncomplicated
CPT/HCPCS: 36415; 80048; 85025; 94640; A9270; J0696; J0780; J2060; J2270